=== PATIENT | female | born 1985 | race Caucasian/White ===

== ENCOUNTER 2018-02-27 05:19 | Day surgery (SDC) | payer MEDICAID ==
[2018-02-24 12:07] LABS: HEMATOCRIT 37.2 % (36.0-47.0); HEMOGLOBIN 12.7 g/dL (12.0-15.5); MEAN CORPUSCULAR HGB CONC 34.1 g/dL (32.0-36.0); MEAN CORPUSCULAR VOLUME 88 fl (80-97); PLATELET COUNT 264 10^3/uL (150-450); RED BLOOD COUNT 4.23 10^6/uL (3.72-5.28); RED CELL DISTRIBUTION WIDTH 13.2 % (11.5-14.0); WHITE BLOOD COUNT 5.4 10^3/uL (4.0-10.5)
[2018-02-24 12:14] LABS: APPEARANCE,URINE SLIGHTLY-CLOUDY; BILIRUBIN,URINE NEGATIVE (NEGATIVE); COLOR,URINE YELLOW; GLUCOSE, URINE NEGATIVE (NEGATIVE); KETONES,URINE NEGATIVE (NEGATIVE); LEUKOCYTE ESTERASE,URINE NEGATIVE (NEGATIVE); NITRITE,URINE NEGATIVE (NEGATIVE); PROTEIN,URINE NEGATIVE (NEGATIVE); URINE SPECIFIC GRAVITY 1.016; UROBILINOGEN,URINE NEGATIVE mg/dL (<2.0)
[2018-02-24 12:33] LABS: ALANINE AMINOTRANSFERASE 14 U/L (9-52); ALBUMIN 4.4 g/dL (3.5-5.0); ALKALINE PHOSPHATASE 41 U/L (38-126); ANION GAP 9 (5-19); ASPARTATE AMINO TRANSFERASE 18 U/L (14-36); BILIRUBIN,DIRECT 0.2 mg/dL (0.0-0.4); BILIRUBIN,TOTAL 0.5 mg/dL (0.2-1.3); BLOOD UREA NITROGEN 12 mg/dL (7-20); CALCIUM 9.5 mg/dL (8.4-10.2); CARBON DIOXIDE 23 mmol/L (22-30); CHLORIDE 110 mmol/L (98-107); GLUCOSE 87 mg/dL (75-110); SODIUM 141.9 mmol/L (137-145); TOTAL PROTEIN 7.1 g/dL (6.3-8.2)
[~2018-02-27 05:19] MED LIST: CEFAZOLIN 1 GM/D5W RTU 1 GM/50 ML RTUPB IV PRN; LACTATED RINGERS 1000 ML IV PRN; LIDOCAINE 0.5% INJ-PF (5 MG/ML) 50 ML SDV SUBCUT PRN
[2018-02-27] MEDS ORDERED: CEFAZOLIN 1 GM/D5W RTU 1 GM/50 ML RTUPB IV ONE (05:25)
[2018-02-27] MEDS ORDERED: BUPIVACAINE HCL 0.25 % INJ/PF (2.5 MG/1 ML) 30 ML VIAL ONE (06:32)
[2018-02-27] MEDS ORDERED: PROPOFOL INJ 200 MG/20 ML VIAL IV ONE (07:14)
[2018-02-27] MEDS ORDERED: FENTANYL CITRATE INJ/PF 100 MCG/2 ML AMPUL ONE (07:14)
[2018-02-27] MEDS ORDERED: LIDOCAINE 2% INJ-PF (20 MG/ML) 10 ML AMPUL ONE (07:14)
[2018-02-27] MEDS ORDERED: ACETAMINOPHEN 1,000 MG/100 ML RTUPB IV ONE (07:14)
[2018-02-27] MEDS ORDERED: MIDAZOLAM 2 MG/2 ML INJ ONE (07:14)
[2018-02-27] MEDS ORDERED: ONDANSETRON HCL INJ/PF 4 MG/2 ML SDV ONE ×2 (07:15→12:38)
[2018-02-27] MEDS ORDERED: HYDROMORPHONE HCL INJ/PF 2 MG/ML AMPULE ONE (07:25)
[2018-02-27] MEDS ORDERED: SCOPOLAMINE HYDROBROMIDE 1.5 MG PATCH.TD72 ONE (07:25)
[2018-02-27] MEDS ORDERED: PROMETHAZINE HCL INJ 25 MG/1 ML VIAL ONE (07:25)
[2018-02-27] MEDS ORDERED: PROMETHAZINE HCL INJ 25 MG/1 ML VIAL IV PRN (08:13)
[2018-02-27] MEDS ORDERED: MORPHINE SULFATE 10 MG/ML INJ IV PRN (08:13)
[2018-02-27] MEDS ORDERED: DIPHENHYDRAMINE HCL 50 MG/ML VIAL IV PRN (08:13)
[2018-02-27] MEDS ORDERED: FENTANYL CITRATE INJ/PF 100 MCG/2 ML AMPUL IV PRN ×3 (08:13)
[2018-02-27] MEDS ORDERED: MEPERIDINE HCL/PF INJ 25 MG/1 ML DISP.SYRIN IV PRN (08:13)
[2018-02-27] MEDS ORDERED: OXYCODONE-ACETAMINOPHEN 5-325 MG TABLET PO PRN (09:36)
[2018-02-27] MEDS ORDERED: ONDANSETRON HCL 8 MG TABLET PO PRN (09:37)
--- NOTE | 2018-02-27 12:37 | OPERATIVE REPORT E ---
Operative Report NAME: MALIHA FLORES : 1985 AGE: 32Y DATE OF SURGERY: 02/27/2018 ROOM: 215 PREOPERATIVE DIAGNOSIS: Chronic pelvic pain and dysmenorrhea. POSTOPERATIVE DIAGNOSIS: Chronic pelvic pain and dysmenorrhea plus adhesions. PROCEDURE: Robotic-assisted hysterectomy with bilateral salpingectomy. SURGEON: Elise MARTIN M.D. Less than 50 mL. TISSUE REMOVED OR ALTERED: Uterus and tubes. ANESTHESIA: General. DESCRIPTION OF PROCEDURE: The patient was placed in a dorsal lithotomy position, prepped and draped in sterile fashion. Speculum was placed. Cervix was visualized and grasped with a single-toothed tenaculum, sounded to a depth of 9 cm. A uterine manipulator was placed per protocol. Attention was directed to the abdomen where a supraumbilical incision was made. Trocar was introduced and was placed in the abdomen under direction of the laparoscope. There were adhesions from the omentum to the anterior abdominal wall where she had an old scar. There were adhesions from the left ovary to the posterior aspect of the uterus, and on the right, there were filmy adhesions from the uterus to the posterior aspect of the right ovary. A second puncture was made lateral to the first on the left and a 5 trocar was introduced, on the right another 5 was introduced, a fourth at the superior iliac crest, and a accessory port was placed. Robot was docked in the usual fashion using monopolar and bipolar cautery. The adhesions were taken down sharply from the anterior abdominal wall. Both ovaries were freed from the posterior aspect of the uterus. The right fallopian tube was identified and divided along the mesosalpinx to the cornua and it was severed and then removed through the accessory port. The procedure was repeated on the left. Each pedicle was then divided down to the level of the ascending branch of the uterine artery. The bladder flap was created with sharp dissection. The cervix was then removed using sharp cautery around the cervix and the uterus then removed through the vagina. The cuff was closed with a running suture of 0 Vicryl. Hemostasis was noted. The robot was undocked and the abdomen deflated and trocar sleeves were removed. The supraumbilical and accessory port incisions were closed using 0 Vicryl for the fascia and 4-0 Vicryl subcu for the skin for the remaining incisions. The patient's urine remained clear throughout the procedure. She was taken to recovery in good condition. DICTATING PHYSICIAN: Elise MARTIN M.D. [id number] PHY#: [id number] ID: [id number] JOB#: [id number] ACCT: [id number] cc:Elise MARTIN M.D. >
[2018-02-27] MEDS ORDERED: KETOROLAC TROMETHAMINE 60 MG/2 ML SDV ONE (12:38)
[2018-02-27] MEDS ORDERED: DEXAMETHASONE SOD PHOSPHATE INJ 4 MG/1 ML VIAL ONE (12:38)
[2018-02-27] MEDS ORDERED: ROCURONIUM BROMIDE INJ 50 MG/5 ML VIAL IV ONE (12:38)
[2018-02-27] MEDS ORDERED: SUCCINYLCHOLINE CHLORIDE INJ 200 MG/10 ML VIAL ONE (12:38)
[2018-02-27] MEDS ORDERED: IBUPROFEN 800 MG TABLET PO SCH (14:00)
[2018-02-27 16:04] VITALS: BP 106/70
== END 2018-02-27 16:30 | disposition home or self-care (01) ==
LOC: OROUT 05:19 → 2S 09:47 → OROUT 16:30
PROVIDERS: ATTEND Obstetrics & Gynecology Gynecology
DX: G89.29 Other chronic pain (principal); R10.2 Pelvic and perineal pain; N94.6 Dysmenorrhea, unspecified; N87.0 Mild cervical dysplasia; N84.0 Polyp of corpus uteri; N83.8 Other noninflammatory disorders of ovary, fallopian tube and broad ligament; E03.9 Hypothyroidism, unspecified; F17.210 Nicotine dependence, cigarettes, uncomplicated; Z79.899 Other long term (current) drug therapy; Z88.0 Allergy status to penicillin
CPT/HCPCS: 58571; S2900; 36415; 80053; 81001; 81025; 840; 85027; 86850; 86900; 86901; 88307; J0131; J0330; J0690; J1100; J1170; J1885; J2250; J2405; J2550; J2704; J3010; J3490